=== PATIENT | male | born 1965 | race Caucasian/White ===

== ENCOUNTER → 2016-12-08 | Outpatient (CLI) | payer MEDICAID | END | disposition home or self-care (01) | LOC: PTH.S 07:35 | DX: Z48.23 Encounter for aftercare following liver transplant (principal); Z94.4 Liver transplant status; Z79.899 Other long term (current) drug therapy ==

== ENCOUNTER → 2016-12-21 | Outpatient (CLI) | payer MEDICAID | END | disposition home or self-care (01) | LOC: PTH.S 07:45 | DX: Z48.23 Encounter for aftercare following liver transplant (principal); Z94.4 Liver transplant status; Z79.899 Other long term (current) drug therapy ==

== ENCOUNTER → 2017-01-04 | Outpatient (CLI) | payer MEDICAID | END | disposition home or self-care (01) | LOC: PTH.S 12-17 16:30 | DX: Z48.23 Encounter for aftercare following liver transplant (principal); Z94.4 Liver transplant status; Z79.899 Other long term (current) drug therapy ==